=== PATIENT | female | born 1980 | race Two or more races ===

== ENCOUNTER 2022-01-09 19:52 | Inpatient (IN) ==
[2022-01-09 21:04] LABS: ABS Eosinophils 0.1 10^3/ul (0-0.6); ABS Lymphocytes 1.4 10^3/ul (1.0-4.8); ABS Monocytes 0.4 10^3/ul (0-0.8); ABS Neutrophils 2.6 10^3/ul (1.5-7.7); Eosinophil % 1.8 %; Hematocrit 42 % (35-47); Hemoglobin 13.9 g/dL (12.0-16.0); Lymphocyte % 31.8 %; Mean Corpuscular HGB Conc 34 g/dL (31-36); Mean Corpuscular Hemoglobin 29 pg (27-31); Mean Corpuscular Volume 87 fL (80-97); Mean Platelet Volume 8.8 fL (7.4-10.4); Platelet Count 213 10^3/uL (150-450); Red Blood Count 4.77 10^6 /uL (3.70-4.87); Red Cell Distribution Width 14 % (10-15); White Blood Count 4.6 10^3/uL (3.5-10.8)
[2022-01-09 21:08] LABS: Urine Appearance Cloudy; Urine Bilirubin Negative (Negative); Urine Blood Negative (Negative); Urine Color Yellow; Urine Glucose Negative (Negative); Urine Ketones Trace (Negative); Urine Nitrite Negative (Negative); Urine Protein Negative (Negative); Urine Specific Gravity 1.017 (1.002-1.030); Urine Urobilinogen Negative (Negative)
[2022-01-09 21:23] LABS: Urine Benzodiazepine Screen None Detected (None Detect); Urine Cannabinoids Screen None Detected (None Detect); Urine Opiates Screen None Detected (None Detect)
[2022-01-09 21:35] LABS: Anion Gap 10 mmol/L (2-11); Blood Urea Nitrogen 14 mg/dL (6-24); CO2 Carbon Dioxide 22 mmol/L (22-32); Chloride 107 mmol/L (101-111); Glucose 98 mg/dL (70-100); Potassium 3.5 mmol/L (3.5-5.0); Sodium 139 mmol/L (135-145)
[2022-01-09 21:36] LABS: ALT 16 U/L (7-52); AST 16 U/L (13-39); Albumin 4.3 g/dL (3.2-5.2); Albumin/Globulin Ratio 1.5 (1-3); Alcohol, S < 13 mg/dL (<13); Alkaline Phosphatase 65 U/L (35-149); Calcium 9.5 mg/dL (8.6-10.3); Globulin 2.8 g/dL (2-4); Salicylate < 2.50 mg/dL (<30); Total Protein 7.1 g/dL (6.4-8.9); eGFR CKD-EPI 63.1 (>60)
[2022-01-09 21:41] LABS: HCG Pregnancy < 0.60 mIU/mL
[2022-01-09 21:50] LABS: TSH Ultra Thyroid Stim Horm 2.39 mcIU/mL (0.34-5.60)
[2022-01-09 21:59] LABS: Acetaminophen < 15 mcg/mL
[2022-01-10] MEDS ORDERED: NARATRIPTAN 2.5 MG PO PRN (00:19)
[2022-01-10] MEDS: Vitamin THERAPEUTIC TAB PO SCH (08:44)
[2022-01-10] MEDS: PTO: Norethindrone 0.35 mg TAB (NF) PO SCH (09:32)
[2022-01-10] MEDS: Al Hydrox/Mg Hydrox/Simet LIQ 30 ML UDC PO PRN (21:24)
[2022-01-11 08:30] LABS: HDL Cholesterol 41.9 mg/dL
[2022-01-11] MEDS: PTO: Norethindrone 0.35 mg TAB (NF) PO SCH (09:00)
[2022-01-11] MEDS: Vitamin THERAPEUTIC TAB PO SCH (09:00)
[2022-01-11] MEDS: Al Hydrox/Mg Hydrox/Simet LIQ 30 ML UDC PO PRN (20:00)
[2022-01-12 09:48] LABS: eGFR CKD-EPI 69.7 (>60)
[2022-01-12] MEDS: Vitamin THERAPEUTIC TAB PO SCH (10:00)
[2022-01-12] MEDS: PTO: Norethindrone 0.35 mg TAB (NF) PO SCH (10:01)
[2022-01-13] MEDS: PTO: Norethindrone 0.35 mg TAB (NF) PO SCH (10:09)
[2022-01-13] MEDS: Vitamin THERAPEUTIC TAB PO SCH (10:09)
[2022-01-13] MEDS: Al Hydrox/Mg Hydrox/Simet LIQ 30 ML UDC PO PRN (17:44)
[2022-01-14] MEDS: Vitamin THERAPEUTIC TAB PO SCH (08:46)
[2022-01-14] MEDS: PTO: Norethindrone 0.35 mg TAB (NF) PO SCH (08:46)
[2022-01-14 10:23] VITALS: BP 116/77
== END 2022-01-14 13:55 | disposition home or self-care (01) | DRG 755 ==
LOC: ED 19:52 → BSU 23:56
PROVIDERS: ADMIT Psychiatry & Neurology Psychiatry; ATTEND Psychiatry & Neurology Psychiatry